=== PATIENT | female | born 1980 | race Caucasian/White ===

== ENCOUNTER 2016-05-13 23:52 | Emergency (ER) | payer OTHER ==
[2016-05-14 00:03] VITALS: BP 126/91; PULSE 69; TEMP 98; BMI 29.1
--- NOTE | 2016-05-14 00:40 | PDOC ---
History of Present Illness - General History Source: Patient Exam Limitations: No Limitations - History of Present Illness Initial Comments: 05/14/16 00:55 The patient is a 35 year old female with no significant past medical history who presents to the ED with 3 days of right leg pain. Patient reports she developed right leg pain Friday evening that has not worsen or alleviated since. She states her pain is worse around her knee and noted her right leg is slightly swollen than the left. She denies any trauma to the area. Patient visited the urgent care around 7pm today where she had blood work done and was notified that her d-dimer is positive and to come into the ER for further work up and evaluation. Patient denies history of DVT or blood clots in the past. She denies diaphoresis, lightheadedness, SOB, chest pain, shoulder pain, arm pain, jaw pain, nausea, or vomiting. She denies any recent travels or oral contraceptive use. The patient denies fever, chills, cough, abdominal pain, and diarrhea. Allergies: NKDA Social History: Current smoker (10 cigarettes daily) Past Surgical History: None reported PCP: Dr. Hussain Delgado <Dayana Kwon - Last Filed: 05/14/16 01:51> <Blanco Elizabeth - Last Filed: 05/14/16 01:52> - General Chief Complaint: Revisit, Lab Variance Stated Complaint: PCP SENT/BLOOD CLOT Time Seen by Provider: 05/14/16 00:38 Past History <Dayana Kwon - Last Filed: 05/14/16 01:51> - Past Medical History Thyroid Disease: No Other medical history: denies - Reproductive History (#): 5 Para: 2 Therapeutic (s) & number: Yes (1) Spontaneous : 1 - Immunization History Td Vaccination: Yes Immunization Up to Date: Yes - Psycho/Social/Smoking Cessation Hx Anxiety: No Suicidal Ideation: No Smoking Status: No Smoking History: Current every day smoker Years of Tobacco Use: 0 Number of Cigarettes Smoked Daily: 10 Cigars Per Day: 0 Information on smoking cessation initiated: Yes 'Breaking Loose' booklet given: 05/14/16 Hx Alcohol Use: No Drug/Substance Use Hx: No Substance Use Type: None <Blanco Elizabeth - Last Filed: 05/14/16 01:52> - Past Medical History Allergies/Adverse Reactions: Allergies Allergy/AdvReac Type Severity Reaction Status Date / Time No Known Allergies Allergy Verified 05/13/16 23:59 Home Medications: Ambulatory Orders NK [No Known Home Medication] 05/13/16 Review of Systems - Review of Systems Able to Perform ROS?: Yes Comments:: 05/14/16 00:55 CONSTITUTIONAL: Absent: fever, chills, diaphoresis, generalized weakness, malaise, loss of appetite HEENT: Absent: rhinorrhea, nasal congestion, throat pain, throat swelling, difficulty swallowing, mouth swelling, ear pain, eye pain, visual Changes CARDIOVASCULAR: Absent: chest pain, syncope, palpitations, irregular heart rate, lightheadedness RESPIRATORY: Absent: cough, shortness of breath, dyspnea with exertion, orthopnea, wheezing, stridor, hemoptysis GASTROINTESTINAL: Absent: abdominal pain, abdominal distension, nausea, vomiting, diarrhea, constipation, melena, hematochezia GENITOURINARY: Absent: dysuria, frequency, urgency, hesitancy, hematuria, flank pain, genital pain MUSCULOSKELETAL: +right leg pain, minimal right leg swelling SKIN: Absent: rash, itching, pallor NEUROLOGIC: Absent: headache, focal weakness or paresthesias, dizziness, unsteady gait, seizure, mental status changes, bladder or bowel incontinence <Dayana Kwon - Last Filed: 05/14/16 01:51> *Physical Exam - Vital Signs Last Vital Signs Temp Pulse Resp BP Pulse Ox 98 F 69 18 126/91 99 05/13/16 23:59 05/13/16 23:59 05/13/16 23:59 05/13/16 23:59 05/13/16 23:59 - Physical Exam Comments: 05/14/16 00:56 GENERAL: Well developed, well nourished. Awake and alert. No acute distress. HEENT: Normocephalic, atraumatic. PERRLA, EOMI. No conjunctival pallor. Sclera are non- icteric. Moist mucous membranes. Oropharynx is clear. NECK: Supple. Full ROM. No JVD. Carotid pulses 2+ and symmetric, without bruits. No thyromegaly. No lymphadenopathy. CARDIOVASCULAR: Regular rate and rhythm. No murmurs, rubs, or gallops. Distal pulses are 2+ and symmetric. PULMONARY: No evidence of respiratory distress. Lungs clear to auscultation bilaterally. No wheezing, rales or rhonchi. ABDOMINAL: Soft. Non-tender. Non-distended. No rebound or guarding. No organomegaly. Normoactive bowel sounds. MUSCULOSKELETAL Normal range of motion at all joints. No bony deformities or tenderness. No CVA tenderness. EXTREMITIES: No cyanosis. No clubbing. No edema. Mild right calf tenderness. SKIN: Warm and dry. Normal capillary refill. No rashes. No jaundice. NEUROLOGICAL: Alert, awake, appropriate. Cranial nerves 2-12 intact. No deficits to light touch and temperature in face, upper extremities and lower extremities. No motor deficits in the in face, upper extremities and lower extremities. Normoreflexic in the upper and lower extremities. Normal speech. PSYCHIATRIC: Cooperative. Good eye contact. Appropriate mood and affect. <Dayana Kwon - Last Filed: 05/14/16 01:51> - Vital Signs Last Vital Signs Temp Pulse Resp BP Pulse Ox 98 F 69 18 126/91 99 05/13/16 23:59 05/13/16 23:59 05/13/16 23:59 05/13/16 23:59 05/13/16 23:59 <Blanco Elizabeth - Last Filed: 05/14/16 01:52> ED Treatment Course - RADIOLOGY Radiograph Interpretation: 05/14/16 01:51 EXAM: Venous duplex bilateral, lower extremities Reviewed by Imaging senior consulting manager: FINDINGS: There is no DVT of the right or left lower extremity. IMPRESSION: No DVT. <Dayana Kwon - Last Filed: 05/14/16 01:51> *DC/Admit/Observation/Transfer - Attestations Scribe Attestion: 05/14/16 00:56 Documentation prepared by Dayana Kwon, acting as clinical specialist medical device for Blanco Elizabeth MD, MD <Dayana Kwon - Last Filed: 05/14/16 01:51> - Discharge Dispostion Admit: No <Blanco Elizabeth - Last Filed: 05/14/16 01:52> Diagnosis at time of Disposition: Calf cramp, Muscle strain - Discharge Dispostion Disposition: HOME Condition at time of disposition: Improved - Referrals Referrals: Hussain Delgado MD [Primary Care Provider] -
== END 2016-05-14 03:34 | disposition home or self-care (01) ==
LOC: JER 23:52
DX: M79.604 Pain in right leg (principal); R25.2 Cramp and spasm
CPT/HCPCS: 93970-TC; 99282-25

== ENCOUNTER 2018-05-01 17:30 | Emergency (ER) | payer OTHER ==
[2018-05-01 17:38] VITALS: BP 137/83; TEMP 98.2; BMI 25.2
--- NOTE | 2018-05-01 17:38 | PDOC ---
Rapid Medical Evaluation Time Seen by Provider: 05/01/18 17:36 Medical Evaluation: Allergies Allergy/AdvReac Type Severity Reaction Status Date / Time metoclopramide [From Reglan] AdvReac Verified 05/01/18 17:34 05/01/18 17:36 I performed a brief in-person evaluation. Chief complaint: Shortness of breath, chest tightness. +Smoker. No OCP use, no calf pain/swelling. Pertinent physical exam findings: Speaking full sentences, no tachypnea. Clear lungs. I have ordered the following: EKG, CXR, urine preg. Patient will proceed to the ED for further evaluation. Discharge Disposition - Diagnosis Chest pain Qualifiers: Chest pain type: other chest pain Qualified Code(s): R07.89 - Other chest pain ; R07.8 - Other chest pain - Referrals - Patient Instructions - Post Discharge Activity
--- NOTE | 2018-05-01 18:00 | PDOC ---
History of Present Illness - General Chief Complaint: Chest Pain Stated Complaint: SHORTNESS OF BREATH Time Seen by Provider: 05/01/18 17:36 History Source: Patient, Old Records Exam Limitations: No Limitations - History of Present Illness Initial Comments: HPI: 37 y/o female presenting to [facility] ER complaining of four days of persistent sensation of butterflies in chest and like I have to remind myself to breath. Has experienced similar symptoms intermittently over the past year but is concerned as this episode has not resolved. Denies radiation to arm or neck. Reports a little lightheadedness while walking, but denies syncope or presyncope. Denies coughing, sneezing, fevers, chills, or diaphoresis. Denies unintentional weight loss or night sweats. Denies cancer diagnosis, long periods of immobilization, or personal and/or familial history of blood clots or bleeding disorders. Does not take OCPs. PCP: None Social Hx: - Tobacco: Smokes 13-15 cigarettes per day since age 19 - EtOH: Socially - Street Drugs: Marijuana x2 monthly Medical Hx: - Migraines Surgical Hx: - Pt denies PSH Past History - Past Medical History Allergies/Adverse Reactions: Allergies Allergy/AdvReac Type Severity Reaction Status Date / Time metoclopramide [From Reglan] AdvReac Verified 05/01/18 17:34 Home Medications: Ambulatory Orders Ibuprofen [Motrin -] 600 mg PO QID PRN #28 tablet 05/14/16 COPD: No Thyroid Disease: No - Reproductive History (#): 5 Para: 2 Therapeutic (s) & number: Yes (1) Spontaneous : 1 - Immunization History Td Vaccination: Yes Immunization Up to Date: Yes - Suicide/Smoking/Psychosocial Hx Smoking Status: No Smoking History: Current every day smoker Years of Tobacco Use: 0 Number of Cigarettes Smoked Daily: 10 Cigars Per Day: 0 Information on smoking cessation initiated: No 'Breaking Loose' booklet given: 05/14/16 Hx Alcohol Use: No Drug/Substance Use Hx: No Substance Use Type: None Review of Systems - Review of Systems Able to Perform ROS?: Yes Comments:: In addition to that documented in the HPI above, the additional ROS was obtained : Constitutional: Denies fevers or chills Eyes: Denies vision changes ENMT: Denies sore throat CV: Per HPI Resp: Per HPI GI: Denies vomiting or diarrhea : Denies painful urination MSK: Denies recent trauma Skin: Denies new rashes Neuro: Denies new numbness or tingling or weakness Endocrine: Denies polyuria Heme: Denies bleeding or bruising *Physical Exam - Vital Signs Last Vital Signs Temp Pulse Resp BP Pulse Ox 98.2 F 70 18 137/83 100 05/01/18 17:37 05/01/18 17:37 05/01/18 17:37 05/01/18 17:37 05/01/18 17:37 - Physical Exam Comments: Constitutional: Well-developed, well-nourished female in no acute distress or obvious discomfort. Found sitting in waiting room. Ambulated to vertical area unassisted without obvious discomfort or difficulty. Alert and oriented x4. Answered all questions appropriately and completely. Speech was non-labored, non -pressured. Head: Normocephalic. No obvious external signs of trauma. Eyes: Sclerae white. Ears: Hearing grossly intact. Nose: No nasal discharge. Neck: Supple, trachea is midline. Cardiovascular / Chest: Regular rate and regular rhythm. No murmur, rubs, clicks, or gallops. Peripheral pulses: radial pulses full. No anterior or posterior chest wall tenderness. Respiratory: Breathing unlabored. Equal chest rise and fall. Clear to auscultation bilaterally. No stridor, no wheezing, no rhonchi. Gastrointestinal: abdomen is soft, non-tender, non-distended. Neuro: Alert and oriented. Moving all four extremities spontaneously. Gait normal. Skin: Warm, dry, and intact. Psych: Affect: appropriate. Mood: normal. Moderate Sedation - Procedure Monitoring Vital Signs: Procedure Monitoring Vital Signs Temperature 98.2 F 05/01/18 17:37 Pulse Rate 70 05/01/18 17:37 Respiratory Rate 18 05/01/18 17:37 Blood Pressure 137/83 05/01/18 17:37 O2 Sat by Pulse Oximetry (%) 100 05/01/18 17:37 Medical Decision Making - Medical Decision Making *Reviewed vital signs, nursing notes, and prior visit documentation (if available). 37 y/o female presenting with abnormal chest sensation. No significant PMH. No first degree relatives with early onset heart disease or PR. Low suspicion for ACS. No risk factors identified for PE. Afebrile. Vitals unremarkable for hypotension or tachycardia. Physical exam as described above. Will obtain CXR, EKG, and Troponin. EKG showed a sinus rhythm without ectopy. No ST segment elevation or depression. Normal axis. Normal intervals. CXR unremarkable for acute cardiopulmonary process. Will refer pt to resident clinic to establish primary care. 05/01/18 19:01 Pt signed out to resident Dr. Melton after he was verbally appraised of the pts HPI, current ED course, and plan of management. Will follow up on pending troponin. *DC/Admit/Observation/Transfer Diagnosis at time of Disposition: Atypical chest pain - Discharge Dispostion Disposition: HOME Condition at time of disposition: Good Decision to Admit order: No - Referrals Referrals: [facility] [place] [Provider Group] - Patient Instructions Printed Discharge Instructions: Nicotine Addiction, DI for Atypical Chest Pain Additional Instructions: You were seen today for abnormal chest sensation for the past four days. Your chest xray, EKG, and blood work were normal. Your sensation is not likely to be related to your heart. YOU NEED TO QUIT SMOKING. IT IS VERY HARMFUL TO YOUR HEALTH. You can take over the counter Tylenol or Advil as needed for pain. Take as directed on the package insert. Do not exceed the recommended dosage. You should follow up with your primary care doctor within the next week to make sure you are healing. You will need to call to make an appointment. Go to the nearest emergency department if your condition worsens or you feel like you need additional emergency evaluation. Print Language: HUNGARIAN - Post Discharge Activity
[2018-05-01 18:36] VITALS: PULSE 102
--- NOTE | 2018-05-01 18:39 | PDOC ---
Attending Attestation - HPI HPI: 05/01/18 18:40 The patient is a 37 year old female, with no significant PMH, who presents to the emergency department with 4 days of worsening constant chest pain. The patient states the chest pain is described as a butterflies in her chest sensation. The patient states she has had the sensation for 1 year but reports the sensation has become constant over the past 4 days prompting the ED visit. The patient states she has an intermittent sensation where she feels she has to remind herself to breath. The patient also endorses mild lightheadedness. The patient states she is a current cigarette smoker and smokes approx 1 PPD. The patient denies any recent sick contacts or travel. Denies any recent palpitations, leg swelling or calf tenderness. The patient denies headache and dizziness. Denies fever, chills, nausea, vomit, diarrhea and constipation. Denies dysuria, frequency, urgency and hematuria. Allergies: metoclopramide Documentation prepared by Domingo Kelly, acting as medical coding auditor for Manuel Martinez MD. - Physicial Exam PE: 05/01/18 18:41 Vitals: Triage vital signs reviewed General Appearance: No acute distress, well nourished, well developed Head: Atraumatic Neck: Supple; No nuchal rigidity Chest Wall: Nontender Cardiac: Regular rate and rhythm, no murmurs, no rubs, no gallops Lungs: Clear to auscultation bilateral, good air movement bilaterally Abdomen: Soft, nondistended, normal bowel sounds, nontender to palpation Rectal: Exam deferred Extremities: Full range of motion to all extremities, no cyanosis, clubbing, or edema Skin: Warm and dry, no rashes or lesions, no rash, no petechiae Psych: Normal mood, normal affect <Domingo Kelly - Last Filed: 05/01/18 18:40> - Resident Resident Name: Chris Ibarra - ED Attending Attestation I have performed the following: I have examined & evaluated the patient, The case was reviewed & discussed with the resident, I agree w/resident's findings & plan, Exceptions are as noted - Medical Decision Making 05/02/18 22:31 Chest discomfort EKG nonischemic given one cardiac risk factor troponin ordered a troponin negative patient to be discharged with cardiology follow-up Findings, the need for follow-up and strict return instructions discussed with patient. <Manuel Martinez - Last Filed: 05/02/18 22:32> Heart Score/ECG Review - History History: Slightly suspicious - Electrocardiogram EKG: Normal - Age Age: </= 45 - Risk Factors Risk Factors Heart Score: Yes Smoking History Based on the list above the patient has:: 1-2 risk factors - ECG Impressions Comment:: 05/01/18 18:39 EKG performed at 539 demonstrates normal sinus rhythm no ST elevations or T- wave inversions Interpreted by me. <Manuel Martinez - Last Filed: 05/02/18 22:32>
--- NOTE | 2018-05-02 13:05 | EKG ---
Test Reason : Blood Pressure : / mmHG Vent. Rate : 066 BPM Atrial Rate : 066 BPM P-R Int : 144 ms QRS Dur : 096 ms QT Int : 378 ms P-R-T Axes : 065 081 065 degrees QTc Int : 396 ms NORMAL SINUS RHYTHM NON-SPECIFIC INTRA-VENTRICULAR CONDUCTION DELAY NO PREVIOUS ECGS AVAILABLE Confirmed by DAMIAN DELEON MD ([id number]) on 05/02/2018 1:05:44 PM Referred By: Confirmed By:DAMIAN DELEON MD
== END 2018-05-01 19:37 | disposition home or self-care (01) ==
LOC: JER 17:30
DX: R07.89 Other chest pain (principal); F17.210 Nicotine dependence, cigarettes, uncomplicated
CPT/HCPCS: 36415; 71046-TC-FY; 84484; 84703; 93005; 93010; 99284-25

== ENCOUNTER 2018-05-13 11:18 | Emergency (ER) | payer SELFPAY ==
[2018-05-13 11:28] VITALS: BP 149/83; PULSE 62; TEMP 97.8; BMI 25.2
--- NOTE | 2018-05-13 12:04 | PDOC ---
History of Present Illness - General Chief Complaint: Headache Stated Complaint: BOTH RED EYES/ HEADACHE Time Seen by Provider: 05/13/18 11:52 - History of Present Illness Initial Comments: 05/13/18 12:03 37-year-old female presents for evaluation of headache and right eye redness times one day. Unrelieved with home Tylenol. She has a history of migraines she states this one is not as severe. She does have associated nausea no vomiting Past History - Past Medical History Allergies/Adverse Reactions: Allergies Allergy/AdvReac Type Severity Reaction Status Date / Time metoclopramide [From Reglan] AdvReac Verified 05/13/18 11:28 Home Medications: Ambulatory Orders NK [No Known Home Medication] 05/13/18 COPD: No Thyroid Disease: No - Reproductive History (#): 5 Para: 2 Therapeutic (s) & number: Yes (1) Spontaneous : 1 - Immunization History Td Vaccination: Yes Immunization Up to Date: Yes - Suicide/Smoking/Psychosocial Hx Smoking Status: No Smoking History: Current every day smoker Years of Tobacco Use: 0 Number of Cigarettes Smoked Daily: 11 Cigars Per Day: 0 Information on smoking cessation initiated: Yes 'Breaking Loose' booklet given: 05/14/16 Hx Alcohol Use: No Drug/Substance Use Hx: No Substance Use Type: None Review of Systems - Review of Systems Constitutional: No: Chills, Fever, Malaise, Night Sweats HEENTM: Yes: See HPI, Eye Pain. No: Blurred Vision, Tearing, Double Vision Respiratory: Yes: Cough Cardiac (ROS): No: Chest Pain ABD/GI: Yes: Nausea. No: Vomiting Neurological: Yes: Headache *Physical Exam - Vital Signs Last Vital Signs Temp Pulse Resp BP Pulse Ox 97.8 F 62 18 149/83 100 05/13/18 11:25 05/13/18 11:25 05/13/18 11:25 05/13/18 11:25 05/13/18 11:25 - Physical Exam Comments: 05/13/18 12:04 HEAD: NC/AT EYES: Small sub conjuntival hemorrhage in the L eye and a larger one in the R eye Ears: Canals and TM's normal NOSE: No d/c THROAT: Moist mucous membrances, oral pharanx clear, uvula midline NECK: Supple without adenopathy CARDIAC: S1 S2 LUNGS: Right-sided rhonchi no wheezing left lung field is clear ABDOMEN: Soft NT ND MS: Full ROM in all joints without edema NEUROLOGIC: No gross sensory or motor deficits, NVID SKIN: Normal color and temperature no lesions or rashes 05/13/18 12:56 Moderate Sedation - Procedure Monitoring Vital Signs: Procedure Monitoring Vital Signs Temperature 97.8 F 05/13/18 11:25 Pulse Rate 62 05/13/18 11:25 Respiratory Rate 18 05/13/18 11:25 Blood Pressure 149/83 05/13/18 11:25 O2 Sat by Pulse Oximetry (%) 100 05/13/18 11:25 *DC/Admit/Observation/Transfer Diagnosis at time of Disposition: Migraine, Cough - Discharge Dispostion Disposition: HOME Condition at time of disposition: Improved Decision to Admit order: No - Referrals Referrals: Kofi Ochoa MD [Staff Physician] - - Patient Instructions Printed Discharge Instructions: Migraine -- Adult Additional Instructions: Follow-up with neurology for further evaluation and treatment of your headache. Return to the emergency room for worsening symptoms. Follow-up with your internal medicine doctor for further evaluation of your cough. Your chest x-ray was clear today. - Post Discharge Activity
[2018-05-13] MEDS ORDERED: FAMOTIDINE 20 MG/50 ML IVPB 20 MG/50 ML MG IVPB ONE ×2 (12:54→13:01)
[2018-05-13] MEDS ORDERED: KETOROLAC TROMETHAMINE 30 MG/1 ML VIAL IVPUSH ONE (12:55)
[2018-05-13] MEDS ORDERED: KETOROLAC TROMETHAMINE 30 MG/1 ML VIAL ONE (13:01)
[2018-05-13] MEDS ORDERED: SODIUM CHLORIDE 0.9% 500 ML INFUS.BAG IV ONE (13:20)
== END 2018-05-13 15:52 | disposition home or self-care (01) ==
LOC: JERFT 11:18
PROC: 3E033GC Introduction of Other Therapeutic Substance into Peripheral Vein, Percutaneous Approach (ICD-10-PCS; principal; 2018-05-13)
PROC: 3E033GC Introduction of Other Therapeutic Substance into Peripheral Vein, Percutaneous Approach (ICD-10-PCS; 2018-05-13)
PROC: 3E0333Z Introduction of Anti-inflammatory into Peripheral Vein, Percutaneous Approach (ICD-10-PCS; 2018-05-13)
DX: G43.909 Migraine, unspecified, not intractable, without status migrainosus (principal); H11.33 Conjunctival hemorrhage, bilateral; R05 Cough
CPT/HCPCS: 70450-TC; 71046-TC-FY; 84703; 99281-25

== ENCOUNTER 2020-05-04 18:36 | Emergency (ER) | payer SELFPAY ==
[2020-05-04 18:40] VITALS: BP 150/80; PULSE 115; TEMP 99.1; BMI 23.5
[2020-05-04] MEDS ORDERED: KETOROLAC TROMETHAMINE 30 MG/1 ML VIAL IM ONE (19:00)
[2020-05-04] MEDS ORDERED: KETOROLAC TROMETHAMINE 30 MG/1 ML VIAL ONE (19:01)
== END 2020-05-04 19:47 | disposition home or self-care (01) ==
LOC: JERFT 18:36
PROC: 3E0233Z Introduction of Anti-inflammatory into Muscle, Percutaneous Approach (ICD-10-PCS; principal; 2020-05-04)
DX: K08.89 Other specified disorders of teeth and supporting structures (principal)
CPT/HCPCS: 99284-25

== ENCOUNTER 2022-07-09 10:56 | Emergency (ER) | payer BC ==
[2022-07-09 11:03] VITALS: RESP 18; BMI 29.0
[2022-07-09 12:53] LABS: BASO % 0.6 % (0-2.0); EOS % 6.4 % (0-4.5); HEMATOCRIT 39.6 % (32.4-45.2); HEMOGLOBIN 13.5 GM/dL (10.7-15.3); LYMPH % 31.2 % (8-40); MCH 30.8 pg (25.7-33.7); MCHC 34.1 g/dl (32.0-36.0); MEAN CELL VOLUME 90.2 fl (80-96); MEAN PLT VOLUME 9.8 fl (7.5-11.1); MONO % 10.1 % (3.8-10.2); NEUT % 51.7 % (42.8-82.8); PLATELET COUNT 220 10^3/uL (134-434); RDW 13.6 % (11.6-15.6); WHITE BLOOD COUNT 4.5 K/mm3 (4.0-10.0)
[2022-07-09 13:00] LABS: INR 1.09 (0.83-1.09); PROTHROMBIN TIME (PATIENT) 12.6 SEC (9.7-13.0)
[2022-07-09 13:03] LABS: ACTIVATED PTT 33.6 SECONDS (25.2-36.5)
[2022-07-09 13:06] LABS: ALBUMIN 3.4 g/dl (3.4-5.0); CALCIUM 9.2 mg/dL (8.5-10.1)
[2022-07-09 13:07] LABS: BLOOD UREA NITROGEN 7.5 mg/dL (7-18)
[2022-07-09 13:10] LABS: CREATININE 0.6 mg/dL (0.55-1.3)
[2022-07-09 13:11] LABS: TOT PROT 6.9 g/dl (6.4-8.2)
[2022-07-09 13:12] LABS: BILIRUBIN,TOTAL 0.3 mg/dL (0.2-1)
[2022-07-09 14:35] VITALS: BP 105/51; PULSE 60; TEMP 98.3
== END 2022-07-09 14:38 | disposition home or self-care (01) ==
LOC: JER 10:56
DX: R06.02 Shortness of breath (principal); R00.2 Palpitations
CPT/HCPCS: 36415; 71045-TC-FY; 71275-TC; 80053; 84443; 84484; 84703; 85025; 85379; 85610; 85730; 93005; 93010; 99285-25; Q9967